=== PATIENT | female | born 1960 | race Caucasian/White ===

== ENCOUNTER → 2024-08-07 | Outpatient (CLI) | payer OTHER ==
[~2024-08-07] MED LIST: HYDACE5 PO; NAPR550 PO; PROM25 PO
[2024-08-11 07:17] LABS: O-DESMETHYLTRAMADOL,URN, QUANT 3023 ng/mL; TRAMADOL, URN, QUANT 2404 ng/mL
== END | disposition home or self-care (01) ==
LOC: LAB 13:05 → LAB SHORT 13:05
PROVIDERS: Physician Assistant
DX: Z51.81 Encounter for therapeutic drug level monitoring (principal); Z79.899 Other long term (current) drug therapy
CPT/HCPCS: G0480